=== PATIENT | female | born 1955 ===

== ENCOUNTER 2018-09-11 11:28 | Emergency (ER) | payer BC, OTHER ==
--- NOTE | 2018-09-11 13:43 | UC ---
Complaint Female HPI - HPI Summary HPI Summary: 63 y/o female with 10 day history of cloudy urine, 24 hours of vera hematuria, flank pain. + fatigue, decreased appetite, no fever, chills, feeling well otherwise. + ralph/urgency x 3-4 days. burning x 24 hours. h/o seeing. Dr. Johnson for hematuria in past. - History Of Current Complaint Chief Complaint: UCGU Stated Complaint: UTI Time Seen by Provider: 09/11/18 13:19 Hx Obtained From: Patient ?: No Onset/Duration: Sudden Onset, Lasting Days Timing: Constant Severity Initially: Mild Severity Currently: Moderate Pain Intensity: 8 Pain Scale Used: 0-10 Numeric Character: Burning, Cramping - Allergies/Home Medications Allergies/Adverse Reactions: Allergies Allergy/AdvReac Type Severity Reaction Status Date / Time celecoxib [From Celebrex] Allergy Shortness Verified 09/11/18 13:09 of Breath clarithromycin [From Biaxin] Allergy Nausea And Verified 09/11/18 13:09 Vomiting esomeprazole [From Nexium] Allergy See Comment Verified 09/11/18 13:09 hydromorphone [From Dilaudid] Allergy See Comment Verified 09/11/18 13:09 meperidine [From Demerol] Allergy Nausea And Verified 09/11/18 13:09 Vomiting morphine Allergy Nausea And Verified 09/11/18 13:09 Vomiting ondansetron [From Zofran] Allergy See Comment Verified 09/11/18 13:09 propoxyphene [From Darvon] Allergy Nausea Verified 09/11/18 13:09 Home Medications: Home Medications Acetaminophen [Acetaminophen Extra Strength] 1,300 mg PO 09/11/18 [History] Al Hydrox/Mg Hydrox/Kenisha BULK* [Mylanta - BULK BOT*] 473 ml PO 09/11/18 [History ] Aspirin 81 mg CHEW TAB* [Aspirin Low Dose TAB*] 81 mg PO DAILY 09/11/18 [ History Confirmed 09/11/18] Atenolol TAB* [Tenormin TAB* 50 MG] 50 mg PO DAILY 09/11/18 [History Confirmed 09/11/18] Buprenorphine 10 MCG PATCH(NF) [Butrans 10 MCG PATCH(NF)] 10 mcg TRANSDERM Q7D 09/11/18 [History Confirmed 09/11/18] Calcium Carbonate [Tums] 500 mg PO 09/11/18 [History] Calcium Carbonate/Vitamin D3 [Calcium 600 + Vit D Tablet] 1 each PO 09/11/18 [ History] Diclofenac Potassium [Cambia] 50 mg PO 09/11/18 [History] Duloxetine HCl [Cymbalta] 60 mg PO 09/11/18 [History] Ergocalciferol (Vitamin D2) [Vitamin D2] 2,000 unit PO 09/11/18 [History] Fluticasone Furoate [Flonase Sensimist] 9.1 ml NS 09/11/18 [History] Gabapentin 300 mg PO 09/11/18 [History] L.acidoph,Paracasei, B.lactis [Probiotic] 3 each PO 09/11/18 [History] Lansoprazole [Prevacid] 30 09/11/18 [History] Lisinopril/HCTZ 1012.5(NF) [Zestoretic 10.5(NF)] 1 tab PO DAILY 09/11/18 [ History Confirmed 09/11/18] Metoclopramide HCl 5 mg PO 09/11/18 [History] Montelukast Sodium TAB* [Singulair TAB*] 10 mg PO DAILY 09/11/18 [History Confirmed 09/11/18] Polyethylene Glycol 3350 [Miralax] 17 gm PO 09/11/18 [History] Potassium Chlor TAB* [Klor Con ER TAB*] 10 meq PO DAILY 09/11/18 [History Confirmed 09/11/18] Pravastatin Sodium 20 mg PO 09/11/18 [History] Turmeric/Turmeric Root Extract [Turmeric 500 mg Capsule] 1 each PO 09/11/18 [ History] Wheat Dextrin [Benefiber On The Go] 2 pow PO 09/11/18 [History] raNITIdine HCl [Ranitidine HCl] 300 mg PO 09/11/18 [History] traZODone TAB* [Desyrel TAB*] 100 mg PO BEDTIME 09/11/18 [History Confirmed 10/29] PMH/Surg Hx/FS Hx/Imm Hx Previously Healthy: Yes - h/o microscopic hematuria - Surgical History Surgical History: Yes Surgery Procedure, Year, and Place: spinal fusion 02, cervical fusion 98, lamenectomy 82. disk injection 78 - Social History Alcohol Use: Rare Substance Use Type: None Smoking Status (MU): Never Smoked Tobacco Review of Systems All Other Systems Reviewed And Are Negative: Yes Constitutional: Positive: Fatigue Genitourinary: Positive: Dysuria, Hematuria, Frequency, Urgency Musculoskeletal: Positive: Myalgia Is Patient Immunocompromised?: No Physical Exam Triage Information Reviewed: Yes Appearance: Well-Appearing, No Pain Distress, Well-Nourished Vital Signs: Initial Vital Signs Temp 99.2 F 09/11/18 13:01 Pulse 88 09/11/18 13:01 Resp 18 09/11/18 13:01 BP 127/83 09/11/18 13:01 Pulse Ox 96 09/11/18 13:01 Eyes: Positive: Conjunctiva Clear Respiratory: Positive: Chest non-tender, Lungs clear, Normal breath sounds, No respiratory distress, No accessory muscle use Cardiovascular: Positive: RRR, No Murmur Abdomen Description: Positive: No Organomegaly, Soft, CVA Tenderness (R), Other : - tender over suprapubic region. Negative: CVA Tenderness (L) Skin Exam: Normal Complaint Female Dx - Course Course Of Treatment: UA + leuks, abx given, follow up with Dr. Johnson within 1 week for repeat UA - Differential Dx/Diagnosis Differential Diagnosis/HQI/PQRI: Pelvic Inflammatory Disease, Renal Colic, Sexually Transmitted Disease Provider Diagnosis: UTI (urinary tract infection) Discharge - Sign-Out/Discharge Documenting (check all that apply): Patient Departure All imaging exams completed and their final reports reviewed: No Studies - Discharge Plan Condition: Good Disposition: HOME Prescriptions: Ciprofloxacin HCl [Cipro] 250 mg PO BID #6 tablet Phenazopyridine TAB* [Pyridium 100 mg TAB*] 100 mg PO TID PRN #10 tab PRN Reason: urinary pain, spasm Patient Education Materials: Urinary Tract Infection in Women (ED) Referrals: Dee COLBY,Dami Benoit [Primary Care Provider] - Additional Instructions: - Increase fluid intake - Follow up with Dr. Johnson within 1 week for repeat UA - pyridium for symptoms - Antibiotic at directed - GO to ER with back pain, chills, fever - Tylenol as needed for pain - Billing Disposition and Condition Condition: GOOD Disposition: Home
--- NOTE | 2018-09-13 17:14 | UC ---
- Progress Note Progress Note: 09/13/2018 Urine culture positive for Strep group A Pt Rx Ciprofloxacin PO. Please call back patient and notify her to stop Cipro PO and Augmentin PO was sent to pharmacy which will cover better for the bacteria. Thank you Landy Dodd PA-C Course/Dx - Diagnoses Provider Diagnoses: UTI (urinary tract infection) Discharge - Sign-Out/Discharge All imaging exams completed and their final reports reviewed: No Studies - Discharge Plan Condition: Good Disposition: HOME Prescriptions: Ciprofloxacin HCl [Cipro] 250 mg PO BID #6 tablet Phenazopyridine TAB* [Pyridium 100 mg TAB*] 100 mg PO TID PRN #10 tab PRN Reason: urinary pain, spasm Patient Education Materials: Urinary Tract Infection in Women (ED) Referrals: Dee COLBY,Dami Benoit [Primary Care Provider] - Additional Instructions: - Increase fluid intake - Follow up with Dr. Johnson within 1 week for repeat UA - pyridium for symptoms - Antibiotic at directed - GO to ER with back pain, chills, fever - Tylenol as needed for pain - Billing Disposition and Condition Condition: GOOD Disposition: Home
--- NOTE | 2018-09-14 12:09 | UC ---
- Progress Note Progress Note: RN to call pt to tell her to shredder picker Augmentin, as prescribed by Joshua Lopez 09/13/18. Course/Dx - Diagnoses Provider Diagnoses: UTI (urinary tract infection) Discharge - Sign-Out/Discharge Documenting (check all that apply): Post-Discharge Follow Up All imaging exams completed and their final reports reviewed: No Studies - Discharge Plan Condition: Good Disposition: HOME Prescriptions: Amoxicillin/Clavulanate TAB* [Augmentin TAB 500 mg*] 500 mg PO BID #14 tab Phenazopyridine TAB* [Pyridium 100 mg TAB*] 100 mg PO TID PRN #10 tab PRN Reason: urinary pain, spasm Patient Education Materials: Urinary Tract Infection in Women (ED) Referrals: Dee COLBY,Dami Benoit [Primary Care Provider] - Additional Instructions: - Increase fluid intake - Follow up with Dr. Johnson within 1 week for repeat UA - pyridium for symptoms - Antibiotic at directed - GO to ER with back pain, chills, fever - Tylenol as needed for pain - Billing Disposition and Condition Condition: GOOD Disposition: Home
== END 2018-09-11 14:00 | disposition home or self-care (01) ==
LOC: UCEAST 11:28
DX: N39.0 Urinary tract infection, site not specified (principal); B95.0 Streptococcus, group A, as the cause of diseases classified elsewhere; R31.9 Hematuria, unspecified; Z88.1 Allergy status to other antibiotic agents; Z88.5 Allergy status to narcotic agent; Z88.8 Allergy status to other drugs, medicaments and biological substances
CPT/HCPCS: 81003; 87077; 87086; 99202; G0463